=== PATIENT | female | born 1940 | race Caucasian/White ===

== ENCOUNTER 2017-04-05 08:56 | Observation (INO) | payer MEDICARE, OTHER ==
[~2017-04-05] VITALS: Ht 162.6 cm; Wt 83.8 kg
[2017-04-05] MEDS: SODIUM CHLORIDE 0.9% 1,000 ML IV SCH ×3 (09:27→17:54)
[2017-04-05 09:42] VITALS: BP 173/74
[2017-04-05] MEDS ORDERED: OMEG-170 PO (09:42)
[2017-04-05] MEDS ORDERED: ZALE5CAP PO (09:42)
[2017-04-05] MEDS ORDERED: ASPI-496 PO (09:42)
[2017-04-05] MEDS ORDERED: CHOL3000 PO (09:42)
[2017-04-05] MEDS ORDERED: RANI150C PO (09:42)
[2017-04-05] MEDS ORDERED: potassium 99 PEG (09:42)
[2017-04-05] MEDS ORDERED: ASCO500T8 PO (09:42)
[2017-04-05] MEDS ORDERED: PLEASE ENTER HEIGHT AND WEIGHT MC SCH (10:00)
[2017-04-05] MEDS ORDERED: LIDOCAINE 2%, 20ML ONE (12:11)
[2017-04-05] MEDS ORDERED: CEFAZOLIN PMX 1GM/50ML 50 ML ONE (12:11)
[2017-04-05] MEDS ORDERED: FENTANYL PF 100 MCG/2ML ONE (12:11)
[2017-04-05] MEDS ORDERED: MIDAZOLAM 1 MG/ML, 2ML ONE (12:11)
[2017-04-05] MEDS ORDERED: CEFAZOLIN 1,000 MG ONE (12:12)
[2017-04-05] MEDS ORDERED: CEFAZOLIN 1,000 MG in SODIUM CHLORIDE 0.9% 50 ML IVPB SCH (13:30)
[2017-04-05] MEDS ORDERED: HYDROcodone/APAP 5/325 TABLET PO PRN (13:30)
[2017-04-05 13:54] VITALS: BP 186/107
[2017-04-05] MEDS ORDERED: ZOLPIDEM 5MG TABLET PO PRN (14:00)
[2017-04-05] MEDS ORDERED: CEFAZOLIN PMX 1GM/50ML 50 ML IVPB SCH (14:30)
[2017-04-05] MEDS ORDERED: hydrALAzine 20 MG/ML, 1ML IV PRN (14:30)
[2017-04-05] MEDS: METOPROLOL TARTRATE 25 MG TABLET PO SCH (15:22)
[2017-04-05] MEDS: ACETAMINOPHEN 325 MG TABLET PO PRN (18:07)
[2017-04-05 19:09] VITALS: BP 152/88
[2017-04-05] MEDS: SODIUM CHLORIDE FLUSH 10ML SYR IVF SCH (21:03)
[2017-04-05] MEDS: ONDANSETRON 2MG/ML, 2ML IV PRN (21:03)
[2017-04-06 03:33] VITALS: BP 147/74
[2017-04-06] MEDS: SODIUM CHLORIDE 0.9% 1,000 ML IV SCH (04:26)
[2017-04-06] MEDS ORDERED: CEFAZOLIN PMX 1GM/50ML 50 ML IVPB SCH (04:30)
[2017-04-06] MEDS: METOPROLOL TARTRATE 25 MG TABLET PO SCH (06:14)
[2017-04-06] MEDS: ACETAMINOPHEN 325 MG TABLET PO PRN (06:16)
[2017-04-06] MEDS: ONDANSETRON 2MG/ML, 2ML IV PRN (06:42)
[2017-04-06 07:55] VITALS: BP 152/84
[2017-04-06] MEDS ORDERED: IBUPROFEN 200 MG TABLET ONE (08:21)
[2017-04-06] MEDS ORDERED: IBUPROFEN 200 MG TABLET PO ONE (08:30)
[2017-04-06] MEDS: SODIUM CHLORIDE FLUSH 10ML SYR IVF SCH (08:38)
[2017-04-06] MEDS ORDERED: METO25TA35 PO (08:43)
[2017-04-06] MEDS ORDERED: ASCORBIC ACID 500 MG TABLET PO SCH (09:00)
[2017-04-06] MEDS ORDERED: ASPIRIN 81 MG TABLET EC PO SCH (09:00)
[2017-04-06] MEDS ORDERED: FAMOTIDINE 20 MG TABLET PO SCH (09:00)
[2017-04-06] MEDS ORDERED: BUTALB/APAP/CAFFEINE 50MG/325MG/40MG ONE (09:45)
[2017-04-06] MEDS ORDERED: BUTALB/APAP/CAFFEINE 50MG/325MG/40MG PO ONE (10:00)
== END 2017-04-06 10:30 | disposition home or self-care (01) ==
LOC: CACL 08:56 → ORIP 13:24 → 5SO 13:48 → DCLOUNGE 04-06 10:25
PROVIDERS: ADMIT Internal Medicine Cardiovascular Disease; ATTEND Internal Medicine Cardiovascular Disease
DX: I44.2 Atrioventricular block, complete (principal); R55 Syncope and collapse
CPT/HCPCS: 33208; 71045; 96365; 96375; 99156; 99157; C1779; C1785; G0378; J0360; J0690; J2250; J2405; J3010; J3490; J7030